=== PATIENT | female | born 1965 | race Caucasian/White ===

== ENCOUNTER 2018-10-05 07:08 | Emergency (ER) | payer OTHER ==
[~2018-10-05] VITALS: Ht 162.6 cm; Wt 71.2 kg
[~2018-10-05 07:08] MED LIST: IBUPROFEN800 MG PO; NICODERM CQ1 EAC1 TD; NICOTINE PATCH1 EAC3 TD; NORCO 5-325 TA1 EACH PO; SENOKOT-S TABL1 EACH PO
[2018-10-05] MEDS ORDERED: ULTRAM50 MG PO (07:56)
[2018-10-05] MEDS ORDERED: IBUPROFEN600 MG PO (07:56)
== END 2018-10-05 08:12 | disposition home or self-care (01) ==
LOC: ED 07:08
DX: S63.501A Unspecified sprain of right wrist, initial encounter (principal); F17.200 Nicotine dependence, unspecified, uncomplicated; Z90.710 Acquired absence of both cervix and uterus; W01.0XXA Fall on same level from slipping, tripping and stumbling without subsequent striking against object, initial encounter
CPT/HCPCS: 73110; 99283

== ENCOUNTER 2020-10-16 08:56 | Emergency (ER) | payer OTHER ==
[~2020-10-16] VITALS: Ht 162.6 cm; Wt 72.6 kg
[~2020-10-16 08:56] MED LIST changes: +HYDROCHLOROTHIA25 MG PO; +IBUPROFEN600 MG PO; +ULTRAM50 MG PO
== END 2020-10-16 10:31 | disposition home or self-care (01) ==
LOC: ED 08:56
DX: S20.211A Contusion of right front wall of thorax, initial encounter (principal); S80.01XA Contusion of right knee, initial encounter; W01.10XA Fall on same level from slipping, tripping and stumbling with subsequent striking against unspecified object, initial encounter; I10 Essential (primary) hypertension; F17.200 Nicotine dependence, unspecified, uncomplicated; Z79.899 Other long term (current) drug therapy
CPT/HCPCS: 71101; 73560; 99283-25

== ENCOUNTER 2022-06-05 10:20 | Emergency (ER) | payer OTHER ==
[~2022-06-05] VITALS: Ht 162.6 cm; Wt 78.0 kg
== END 2022-06-05 12:18 | disposition home or self-care (01) ==
LOC: ED 10:20
DX: S09.90XA Unspecified injury of head, initial encounter (principal); S50.11XA Contusion of right forearm, initial encounter; I10 Essential (primary) hypertension; F17.200 Nicotine dependence, unspecified, uncomplicated; W01.0XXA Fall on same level from slipping, tripping and stumbling without subsequent striking against object, initial encounter
CPT/HCPCS: 73090; 99283-25; A9270

== ENCOUNTER 2024-02-09 19:35 | Emergency (ER) | payer OTHER ==
[~2024-02-09] VITALS: Ht 162.6 cm; Wt 75.5 kg
[2024-02-09 21:02] VITALS: BP 155/93
== END 2024-02-09 21:00 | disposition home or self-care (01) ==
LOC: ED 19:35
DX: S60.221A Contusion of right hand, initial encounter (principal); I10 Essential (primary) hypertension; F17.200 Nicotine dependence, unspecified, uncomplicated; W01.0XXA Fall on same level from slipping, tripping and stumbling without subsequent striking against object, initial encounter
CPT/HCPCS: 73130; 99283